=== PATIENT | female | born 1980 | race Caucasian/White ===

== ENCOUNTER → 2019-04-20 | Outpatient (REF) | payer OTHER ==
[2019-04-20 23:43] LABS: CHLAMYDIA DNA AMPLIFICATION NEGATIVE (NEGATIVE); GC DNA AMPLIFICATION NEGATIVE (NEGATIVE)
== END ==
LOC: M SFHCLERA 16:14
PROVIDERS: ATTEND Nurse Practitioner Family
DX: R30.0 Dysuria (principal)
CPT/HCPCS: 81002; 81025; 87088; 87186; 87661; G0463

== ENCOUNTER → 2019-09-10 | Outpatient (REF) | payer OTHER ==
[2019-09-10 17:02] LABS: APPEARANCE, URINE HAZY (CLEAR); BACTERIA, URINE AUTO 1+ (NEGATIVE); BILIRUBIN, URINE AUTO NEGATIVE (NEGATIVE); BLOOD, URINE BLOOD 2+ (NEGATIVE); COLOR, URINE YELLOW (YELLOW); GLUCOSE, URINE (UA) AUTO NEGATIVE (NEGATIVE); KETONE, URINE AUTO NEGATIVE (NEGATIVE); LEUKOCYTE ESTERASE, URINE AUTO 3+ (NEGATIVE); NITRITE, URINE AUTO NEGATIVE (NEGATIVE); PROTEIN, URINE AUTO NEGATIVE (NEGATIVE); RBC, URINE AUTO 5 /HPF (0-3); SPECIFIC GRAVITY URINE AUTO 1.003 (1.002-1.035); SQUAMOUS EPITHELIAL CELL UR AU 1 /HPF (0-6); UROBILINOGEN, URINE AUTO 0.2 mg/dL (0.0-2.0); WBC, URINE AUTO 52 /HPF (0-3)
[2019-09-10 20:15] LABS: CHLAMYDIA DNA AMPLIFICATION NEGATIVE (NEGATIVE); GC DNA AMPLIFICATION NEGATIVE (NEGATIVE)
== END ==
LOC: M SFHCLERA 13:29
PROVIDERS: ATTEND Nurse Practitioner Family
DX: R30.0 Dysuria (principal)

== ENCOUNTER → 2021-10-23 | Outpatient (CLI) | payer OTHER | LOC: M WUC 11:12 | PROVIDERS: ATTEND Physician Assistant | DX: R10.815 Periumbilic abdominal tenderness (principal) ==

== ENCOUNTER → 2023-12-12 | Outpatient (CLI) | payer OTHER | LOC: M WHC 14:36 | PROVIDERS: ATTEND Family Medicine | DX: Z12.31 Encounter for screening mammogram for malignant neoplasm of breast (principal) ==

== ENCOUNTER → 2023-12-27 | Outpatient (CLI) | payer OTHER | LOC: M WHC 13:03 | PROVIDERS: ATTEND Family Medicine | DX: Z12.31 Encounter for screening mammogram for malignant neoplasm of breast (principal); N63.21 Unspecified lump in the left breast, upper outer quadrant | CPT/HCPCS: 76642; 77065; G0279 ==

== ENCOUNTER → 2024-07-17 | Outpatient (CLI) | payer OTHER | LOC: M WHC 14:57 | PROVIDERS: ATTEND Internal Medicine | DX: R92.8 Other abnormal and inconclusive findings on diagnostic imaging of breast (principal); R92.30 Dense breasts, unspecified | CPT/HCPCS: 77065; G0279 ==

== ENCOUNTER 2024-09-01 22:52 | Emergency (ER) | payer OTHER ==
[~2024-09-01] VITALS: Ht 175.3 cm; Wt 89.6 kg
[2024-09-01] MEDS ORDERED: BUPR-69 PO (23:02)
[2024-09-01] MEDS ORDERED: METF-839 PO (23:05)
[2024-09-02 00:57] LABS: BASO # 0.1 10^3/uL (0.0-0.2); BASO % 0.7 % (0.0-1.0); EOS # 0.2 10^3/uL (0.0-0.5); EOS % 1.9 % (0.0-3.0); HEMATOCRIT 42.7 % (36.0-47.0); HEMOGLOBIN 13.9 g/dl (12.0-15.5); LYMPH # 1.6 10^3/uL (1.5-5.0); LYMPH % 14.7 % (24.0-44.0); MEAN CORPUSCULAR HEMOGLOBIN 31.7 pg (27.0-33.0); MEAN CORPUSCULAR HGB CONC 32.6 g/dl (32.0-36.5); MEAN CORPUSCULAR VOLUME 97.3 fl (80.0-96.0); MONO # 0.8 10^3/uL (0.0-0.8); MONO % 7.2 % (2.0-8.0); NEUTROPHILS # 8.1 10^3/uL (1.5-8.5); NEUTROPHILS % 75.4 % (36.0-66.0); PLATELET COUNT, AUTOMATED 247 10^3/uL (150-450); RED BLOOD COUNT 4.39 10^6/uL (4.00-5.40); WHITE BLOOD COUNT 10.7 10^3/uL (4.0-10.0)
[2024-09-02 01:24] LABS: BLOOD UREA NITROGEN 14 MG/DL (9-23); CALCIUM LEVEL 9.1 MG/DL (8.5-10.1); CARBON DIOXIDE LEVEL 24 MMOL/L (20-31); CHLORIDE LEVEL 107 MMOL/L (98-107); CREATININE FOR GFR 0.56 MG/DL (0.55-1.30); GLOMERULAR FILTRATION RATE > 90.0 (>58); GLUCOSE, FASTING 102 MG/DL (60-100); POTASSIUM SERUM 4.2 MMOL/L (3.5-5.1); SODIUM LEVEL 140 MMOL/L (136-145)
[2024-09-02 01:33] LABS: APPEARANCE, URINE HAZY (CLEAR); BACTERIA, URINE AUTO 1+ (NEGATIVE); BILIRUBIN, URINE AUTO NEGATIVE (NEGATIVE); BLOOD, URINE BLOOD NEGATIVE (NEGATIVE); COLOR, URINE YELLOW (YELLOW); GLUCOSE, URINE (UA) AUTO NEGATIVE (NEGATIVE); KETONE, URINE AUTO TRACE mg/dL (NEGATIVE); LEUKOCYTE ESTERASE, URINE AUTO NEGATIVE (NEGATIVE); MUCUS, URINE SMALL (NEGATIVE); NITRITE, URINE AUTO NEGATIVE (NEGATIVE); PROTEIN, URINE AUTO NEGATIVE (NEGATIVE); RBC, URINE AUTO 1 /HPF (0-3); SPECIFIC GRAVITY URINE AUTO 1.017 (1.002-1.035); SQUAMOUS EPITHELIAL CELL UR AU 1 /HPF (0-6); UROBILINOGEN, URINE AUTO 0.2 mg/dL (0.0-2.0); WBC, URINE AUTO 1 /HPF (0-3)
[2024-09-02 03:45] LABS: LIPASE 29 U/L (12-53)
[2024-09-02 03:46] LABS: AMYLASE 48 U/L (30-118)
[2024-09-02 03:47] LABS: ALKALINE PHOSPHATASE 43 U/L (35-104); ALT/SGPT 66 U/L (7.0-40); AST/SGOT 27 U/L (<34); BILIRUBIN,DIRECT < 0.1 MG/DL (<0.4); BILIRUBIN,TOTAL 0.3 MG/DL (0.3-1.2); TOTAL PROTEIN 7.9 G/DL (5.7-8.2)
[2024-09-02] MEDS ORDERED: ISOVUE-370 76% 100ML VIAL As Ordered ONE (03:59)
[2024-09-02] MEDS: KETOROLAC 30 MG/ML 1ML VIAL IV ONE (05:30)
[2024-09-02] MEDS: ONDANSETRON 4MG 2ML VIAL IV ONE (05:30)
[2024-09-02] MEDS ORDERED: DULC5TAB PO (06:41)
[2024-09-02 06:45] VITALS: BP 99/60; TEMP 97.8; O2SAT 98
[2024-09-02] MEDS: MAGNESIUM CITRATE 300ML BTL PO ONE (06:50)
== END 2024-09-02 06:55 | disposition home or self-care (01) ==
LOC: M ED 22:52
DX: K59.00 Constipation, unspecified (principal); E28.2 Polycystic ovarian syndrome; Z79.84 Long term (current) use of oral hypoglycemic drugs
CPT/HCPCS: 74177; 80048; 80076; 81001; 82150; 83690; 85025; 96374; 96375; 99284; J1885; J2405; Q9967

== ENCOUNTER → 2025-05-06 | Outpatient (CLI) | payer OTHER ==
[~2025-05-06] MED LIST: BUPR-69 PO; DULC5TAB PO; METF-839 PO
== END ==
LOC: M WHC 12:46
PROVIDERS: ATTEND Family Medicine
DX: R92.30 Dense breasts, unspecified (principal); R92.322 Mammographic fibroglandular density, left breast; Z12.31 Encounter for screening mammogram for malignant neoplasm of breast
CPT/HCPCS: 77066; G0279